=== PATIENT | male | born 1950 | race Caucasian/White ===

== ENCOUNTER → 2017-03-03 | Outpatient (CLI) | payer MEDICARE ==
[2017-03-03 11:51] LABS: RED BLOOD COUNT 4.42 M/UL (4.20-5.50); WHITE BLOOD COUNT 5.1 K/UL (4.5-11.0)
[2017-03-03 12:08] LABS: BUN/CREATININE RATIO 10 (0-10)
== END ==
LOC: LAB 11:13
PROVIDERS: Internal Medicine Nephrology
DX: N18.3 Chronic kidney disease, stage 3 (moderate) (principal); E87.6 Hypokalemia; N18.9 Chronic kidney disease, unspecified
CPT/HCPCS: 36415; 80053; 82570; 83735; 84156; 85027

== ENCOUNTER 2020-10-23 22:10 | Emergency (ER) | payer MEDICARE ==
[~2020-10-23 22:10] MED LIST: IBUPROFEN600 MG PO; NORCO 7.5-3251 EACH PO
[2020-10-24 01:21] LABS: HEMOGLOBIN 16.1 gm/dl (14.0-17.5); RED BLOOD COUNT 5.09 M/UL (4.20-5.50); WHITE BLOOD COUNT 19.1 K/UL (4.5-11.0)
[2020-10-24 01:38] LABS: BUN/CREATININE RATIO 15 (0-10)
== END 2020-10-24 02:55 | disposition home or self-care (01) ==
LOC: ER1 22:10
PROVIDERS: Emergency Medicine
DX: R00.2 Palpitations (principal); R07.9 Chest pain, unspecified; I12.9 Hypertensive chronic kidney disease with stage 1 through stage 4 chronic kidney disease, or unspecified chronic kidney disease; N18.9 Chronic kidney disease, unspecified; Z87.448 Personal history of other diseases of urinary system
CPT/HCPCS: 71045; 80053; 81001; 82550; 82553; 83735; 83874; 83880; 84439; 84443; 84484; 85025; 85379; 93005; 99285

== ENCOUNTER → 2020-12-27 | Outpatient (CLI) | payer MEDICARE | LOC: LAB 10:41 | PROVIDERS: Internal Medicine Nephrology | DX: N18.30 Chronic kidney disease, stage 3 unspecified (principal) | CPT/HCPCS: 36415; 80053; 82570; 84156 ==

== ENCOUNTER → 2021-04-04 | Outpatient (CLI) | payer MEDICARE | LOC: LAB 10:58 | PROVIDERS: Internal Medicine Nephrology | DX: R31.9 Hematuria, unspecified (principal); N18.30 Chronic kidney disease, stage 3 unspecified; E87.6 Hypokalemia; E55.9 Vitamin D deficiency, unspecified | CPT/HCPCS: 36415; 80053; 82570; 83735; 84156 ==

== ENCOUNTER → 2021-07-04 | Outpatient (CLI) | payer MEDICARE | LOC: LAB 10:38 | PROVIDERS: Internal Medicine Nephrology | DX: N18.30 Chronic kidney disease, stage 3 unspecified (principal) | CPT/HCPCS: 36415; 80053; 82570; 83735; 83970; 84100; 84156 ==

== ENCOUNTER → 2021-09-26 | Outpatient (CLI) | payer MEDICARE | LOC: LAB 11:39 | PROVIDERS: Internal Medicine Nephrology | DX: N18.31 Chronic kidney disease, stage 3a (principal) | CPT/HCPCS: 36415; 80053; 82570; 84156 ==

== ENCOUNTER → 2022-02-06 | Outpatient (CLI) | payer MEDICARE | LOC: LAB 11:44 | PROVIDERS: Internal Medicine Nephrology | DX: N18.31 Chronic kidney disease, stage 3a (principal); E55.9 Vitamin D deficiency, unspecified; E87.6 Hypokalemia | CPT/HCPCS: 36415; 80053; 82570; 83735; 84156 ==

== ENCOUNTER → 2022-02-06 | Outpatient (CLI) | payer MEDICARE | LOC: EXRD 13:00 | DX: N28.1 Cyst of kidney, acquired (principal) | CPT/HCPCS: 76775 ==

== ENCOUNTER → 2022-04-16 | Outpatient (CLI) | payer MEDICARE | LOC: HEART 5 15:00 | DX: I10 Essential (primary) hypertension (principal); R00.2 Palpitations; R60.9 Edema, unspecified; I08.1 Rheumatic disorders of both mitral and tricuspid valves | CPT/HCPCS: 93306 ==

== ENCOUNTER → 2022-05-09 | Outpatient (CLI) | payer MEDICARE ==
[2022-05-09 14:43] LABS: URINE TOTAL PROTEIN 51 mg/dl
== END ==
LOC: LAB 13:42
PROVIDERS: Internal Medicine Nephrology
DX: N18.31 Chronic kidney disease, stage 3a (principal); E55.9 Vitamin D deficiency, unspecified; E87.6 Hypokalemia
CPT/HCPCS: 36415; 80053; 83735; 84156